=== PATIENT | female | born 1970 | race Hispanic/Latino ===

== ENCOUNTER 2018-06-20 11:23 | Emergency (ER) | payer BC, OTHER ==
[2018-06-20] MEDS ORDERED: NACL 0.9% 1000 ML 1,000 ML IV ONE (12:16)
--- NOTE | 2018-06-20 12:43 | Emergency Department Report ---
ED Syncope HPI - General Chief Complaint: Syncope Stated Complaint: SYNCOPE Time Seen by Provider: 06/20/18 11:59 - History of Present Illness Initial Comments: 47-year-old Female presents to ED for syncopal episode at doctor's office. Patient states she was having an IV placed so that she could have steroid infusion. Patient states the nurse was unable to get the IV, but kept trying multiple times. Patient states she told him she was feeling faint, she then passed out. Patient reports that the she has previously had syncopal episode secondary to blood draws/IV sticks. Patient denies chest pain, shortness of breath, palpitations, headache. States she has been NPO since midnight due to her appointment today. Timing/Prior Episodes: remote history Precipitating Factors: Positive: lightheadedness Context: sitting Loss of Consciousness: brief (seconds) Current Symptoms: back to normal, nausea. denies: chest pain, dizziness, headache, injury - Related Data Allergies/Adverse Reactions: Allergies Penicillins Allergy (Verified 06/20/18 11:51) Unknown ED Review of Systems ROS: Stated complaint: SYNCOPE Other details as noted in HPI Comment: All other systems reviewed and negative Constitutional: denies: chills, fever Respiratory: denies: shortness of breath Cardiovascular: denies: chest pain, palpitations Gastrointestinal: nausea. denies: vomiting Neurological: denies: headache ED Past Medical Hx - Past Medical History Previous Medical History?: Yes Additional medical history: depression, chronic back pain - Surgical History Past Surgical History?: Yes Additional Surgical History: laminectomy, discectomy - Social History Smoking Status: Former Smoker Substance Use Type: None ED Physical Exam - General Limitations: No Limitations General appearance: alert, in no apparent distress - Head Head exam: Present: atraumatic, normocephalic - Eye Eye exam: Present: normal appearance, PERRL, EOMI - ENT ENT exam: Present: mucous membranes moist - Neck Neck exam: Present: normal inspection - Respiratory Respiratory exam: Present: normal lung sounds bilaterally. Absent: respiratory distress - Cardiovascular Cardiovascular Exam: Present: regular rate, normal rhythm - GI/Abdominal GI/Abdominal exam: Present: soft. Absent: distended, tenderness - Extremities Exam Extremities exam: Present: normal inspection - Neurological Exam Neurological exam: Present: alert, oriented X3, CN II-XII intact. Absent: motor sensory deficit - Psychiatric Psychiatric exam: Present: normal affect, normal mood - Skin Skin exam: Present: warm, dry, intact, normal color ED Course Vital Signs 06/20/18 06/20/18 06/20/18 11:52 12:00 14:45 Temperature 98.2 F 98.5 F Pulse Rate 58 L 83 Pulse Rate [ 63 Lying] Pulse Rate [ 68 Sitting] Pulse Rate [ 84 Standing] Respiratory 14 16 Rate Blood Pressure 116/74 [Lying] Blood Pressure 122/74 147/89 [Right] Blood Pressure 125/84 [Sitting] Blood Pressure 112/81 [Standing] O2 Sat by Pulse 98 100 Oximetry ED Medical Decision Making - Lab Data Result diagrams: 06/20/18 12:30 06/20/18 12:30 - EKG Data -: EKG Interpreted by Mi EKG shows normal: sinus rhythm, axis, intervals, QRS complexes, ST-T waves - EKG Data Interpretation: no acute changes - Medical Decision Making 47-year-old female with likely vasovagal syncope while having IV placed. EKG and labs unremarkable. Patient mildly orthostatic, IV fluid bolus is given. [facility] much better at this time. Will discharge home. Return precautions given. Outpatient follow-up advised. - Differential Diagnosis vasovagal syncope, dehydration, arrythmia Critical care attestation.: If time is entered above; I have spent that time in minutes in the direct care of this critically ill patient, excluding procedure time. ED Disposition Clinical Impression: Vasovagal syncope Disposition: DC-01 TO HOME OR SELFCARE Is pt being admited?: No Condition: Stable Instructions: Syncope (ED) Referrals: PRIMARY CARE, [Primary Care Provider] - 3-5 Days Time of Disposition: 13:53
[2018-06-20 12:54] LABS: Basophils # (Auto) 0.1 K/mm3 (0.0-0.1); Basophils % (Auto) 0.6 % (0.0-1.8); Eosinophils % (Auto) 0.4 % (0.0-4.3); Hematocrit 44.8 % (30.3-42.9); Hemoglobin 15.6 gm/dl (10.1-14.3); Lymphocytes # (Auto) 1.5 K/mm3 (1.2-5.4); Lymphocytes % (Auto) 14.5 % (13.4-35.0); Mean Corpuscular HGB Conc 35 % (30-34); Mean Corpuscular Volume 86 fl (79-97); Monocytes # (Auto) 0.6 K/mm3 (0.0-0.8); Monocytes % (Auto) 5.5 % (0.0-7.3); Platelet Count 357 K/mm3 (140-440); Red Blood Count 5.22 M/mm3 (3.65-5.03); Red Cell Distribution Width 13.7 % (13.2-15.2)
[2018-06-20 13:16] LABS: BUN/Creatinine Ratio 11; Blood Urea Nitrogen 10 mg/dL (7-17); Calcium 9.1 mg/dL (8.4-10.2); Hemolysis Index 23
[2018-06-20 20:55] VITALS: BP 147/89
== END 2018-06-20 14:45 | disposition home or self-care (01) ==
LOC: ED 11:23
DX: R55 Syncope and collapse (principal); M54.9 Dorsalgia, unspecified; G89.29 Other chronic pain; Z87.891 Personal history of nicotine dependence; Z88.0 Allergy status to penicillin
CPT/HCPCS: 36415; 80048; 84484; 84703; 85025; 93005; 93010; 96360; 99284; J7030